=== PATIENT | female | born 1980 | race Caucasian/White ===

== ENCOUNTER → 2019-11-29 15:00 | Outpatient (CLI) | payer BC, MEDICAID, SELFPAY ==
--- NOTE | 2019-11-29 15:09 | CT_ITS ---
PROCEDURE: CT KNEE LT WO CON CLINICAL HISTORY: LT KNEE-FX LT TIBIA Injury with pain, follow-up fracture COMPARISON: No exams were available for comparison TECHNIQUE: Axial images obtained with sagittal and coronal reformats. All CT scans at the facility use one or more dose reduction, viz: automated exposure control, ma/kV adjustment per patient size (including targeted exams where dose is matched to indication, i.e. head), or iterative reconstruction technique. FINDINGS: There is a comminuted depressed intra-articular lateral tibial plateau fracture. Fracture fragments are depressed by approximately 7 mm. The fracture involves the mid and anterior aspect of the lateral tibial plateau. The posterior aspect of the lateral tibial plateau is not involved. Tibial spines are not involved. Distal femur and patella has an unremarkable appearance. There is a vertical component of the fracture along the anterior and lateral aspect of the proximal tibia which is not significantly displaced and involves the articular surface anteriorly. There is a medium-sized knee joint effusion. The cannot adequately evaluate the integrity the ligamentous structures IMPRESSION: Comminuted mildly depressed intra-articular lateral tibial plateau fracture as described above with knee joint effusion Dictated by: Florencio Bro MD 11/29/2019 17:15 Electronically signed by Florencio Bro MD in [place] 11/29/2019 17:15
== END ==
PROVIDERS: Visit Provider Orthopaedic Surgery Adult Reconstructive Orthopaedic Surgery
DX: S82.122A Displaced fracture of lateral condyle of left tibia, initial encounter for closed fracture (principal)
CPT/HCPCS: 73700

== ENCOUNTER 2023-08-11 18:03 | Emergency (ER) | payer MEDICAID, SELFPAY ==
[2023-08-11 18:05] VITALS: BP 135/96; PULSE 82; RESP 18; TEMP 36.6; O2SAT 98; BMI 30.4
[2023-08-11] MEDS: OXYMETAZOLINE NASAL SPRAY 0.05% 15ML 4 ML NS (18:43)
--- NOTE | 2023-08-11 18:45 | ED_ITS ---
Discharge Plan Disposition Patient Disposition: Home, Self-Care Chief Complaint: Epistaxis Prescriptions Prescriptions: No Action doxycycline hyclate 100 mg tablet 100 mg PO BID Qty: 20 0RF prednisone 20 mg tablet 20 mg PO BID Qty: 10 0RF Rx Instructions: administer with food or milk ecwzmcxtgdohwjq-uzjodrspt-JO [Bromfed DM] 2-30-10 mg/5 mL syrup 5 ml PO Q6H PRN (Reason: cold symptoms) Qty: 180 0RF phentermine [Adipex-P] 37.5 mg tablet 37.5 mg PO DAILY Qty: 30 0RF Rx Instructions: must administer 30 minutes before or 1-2 hours after breakfast Referrals Follow up/Referrals: Denisse Calhoun PA [Primary Care Provider] - See instructions Activity Restrictions/Add. Instructions Additional Instructions/Restrictions: If you have another episode, blood clots out of your nose, put Afrin in both sides 2-4 squirts, then blow your nose for 20 minutes. Repeat up to 2 times. If you do not have resolution of nosebleed, come to the emergency department for further evaluation. Clinical Impressions Clinical Impression: Acute anterior epistaxis Instructions Patient Instructions: DI for Nosebleed Discharge ED Provider: George Jaimes General Adult HPI General Chief complaint: Epistaxis Stated complaint: nosebleed Time Seen by Provider: 08/11/23 18:07 Mode of Arrival: Ambulatory Source of Information: Patient Limitations: No Limitations Description of Symptoms (Recalled from ER Triage Doc. by RN): Patient presents to ED with nose bleed, states it started 15 minutes ago. History of Present Illness HPI narrative: 43-year-old female presenting with epistaxis. Last time she had epistaxis was about a month ago, first time ever. She is now having another episode. Both times were in the left nostril. Digital trauma was the cause. Not on anticoagulation. Related Data Previous Rx's Medication Instructions Recorded pkfihnrvlyppjhf-rhxeepfiulbledg-DT 5 ml PO Q6H PRN cold symptoms #180 04/23/23 2 mg-30 mg-10 mg/5 mL oral syrup mL (Bromfed DM) doxycycline hyclate 100 mg tablet 100 mg PO BID #20 tabs 04/23/23 phentermine 37.5 mg tablet 37.5 mg PO DAILY #30 tabs 04/23/23 (Adipex-P) prednisone 20 mg tablet 20 mg PO BID #10 tabs 04/23/23 Allergies Allergy/AdvReac Type Severity Reaction Status Date / Time No Known Allergies Allergy Verified 04/23/23 09:32 [facility] Disclaimer: The information contained in this section may have been updated after the patient was seen, as this information can be updated by other users. Social History Smoking Status: Never smoker alcohol intake: never substance use type: denies use current occupational status: employed Travel in the last 8 weeks: None household members: family housing: house ROS Obtained: Yes All systems reviewed & no additional complaints except as documented Physical Exam General General appearance: alert and in no apparent distress Head Head exam: atraumatic and normocephalic Eye Eye exam: Present normal appearance, PERRL and EOMI ENT ENT exam: Present mucous membranes moist and other (Nasal polyp and Kiesselbach's plexus on the left side of the septum) Neck Neck exam: Present normal inspection, full ROM and trachea midline Respiratory Respiratory exam: Absent respiratory distress, wheezes, stridor, accessory muscle use or prolonged expiratory phase Cardiovascular Cardiovascular exam: Present normal rhythm Abdominal Exam Abdominal exam: Present soft; Absent distention, tenderness, guarding, rebound or rigidity Extremities Exam Extremities exam: Absent edema Neurological Exam Neurological exam: Present alert, oriented X3, CN II-XII intact and normal gait; Absent motor sensory deficit Skin Skin exam: Present warm and dry; Absent diaphoresis or erythema Medical Decision Making Medical Records Medical records reviewed: Yes I reviewed the patient's medical records. Uday Inquiry Pt receiving controlled substance: No Uday was queried for this patient: No Vital Signs: 08/11/23 18:05 08/11/23 19:18 08/11/23 19:25 Temperature 97.8 F 98.5 F Temperature Source Oral Oral Pulse Rate 88 90 Pulse Rate [Right Radial] 82 Respiratory Rate 18 18 Blood Pressure 104/62 L 104/62 L Blood Pressure [Right Arm] 135/96 H Blood Pressure Mean 66 Blood Pressure Mean [Right Arm] 109 Blood Pressure Source Automatic Cuff Blood Pressure Source [Right Arm] Automatic Cuff Blood Pressure Position Sitting Blood Pressure Position [Right Arm] Sitting 02 Sat by Pulse Oximetry 98 96 Oxygen Delivery Method Room Air Room Air Orders (Tests/Meds): ED MEDICATIONS Discontinued Medications Generic Name Dose Route Start Last Admin Trade Name Katie PRN Reason Stop Dose Admin Oxymetazoline HCl 4 ml 08/11/23 18:28 08/11/23 18:43 Oxymetazoline Nasal [place] 0.05% 15ml NS 08/11/23 18:29 4 ml ONCE ONE Administration Medical Decision Narrative: 43-year-old female presenting with epistaxis. Last time she had epistaxis was about a month ago, first time ever. She is now having another episode. Both times were in the left nostril. Digital trauma was the cause. Not on anticoagulation. History was obtained via conversation with patient and . On arrival, patient hemodynamically stable, alert, oriented x4, appropriate, GCS 15, moving all extremities spontaneously, pupils equal and reactive to light. Full physical exam performed and significant for epistaxis on my evaluation. Patient has bleeding associated with nasal polyp and keeps a box plexus on the left side of the septum. Mildly tachycardic, normotensive. Differential includes digital trauma, bleeding dyscrasia, among others. Patient was given topical oxymetazoline for symptomatic management and correction of underlying abnormalities. On reevaluation, patient hemostatic.Given patient presentation, workup, history, this most likely represents epistaxis secondary to digital trauma. Because patient does have nasal polyp, is recommended that she continues to have the symptoms to follow-up with ENT, she voiced understanding. Because patient at baseline without signs or symptoms of clinical decompensation, deemed appropriate for discharge. Results were relayed to patient who voiced understanding and were agreeable to outpatient management and follow up. At the time of discharge the patient was hemodynamically stable, tolerating PO, and mobilizing appropriately. Critical Care Critical Care Time Critical Care Time: No
[2023-08-11 19:18] VITALS: BP 104/62; PULSE 88; O2SAT 96
[2023-08-11 19:25] VITALS: BP 104/62; PULSE 90; RESP 18; TEMP 36.9; O2SAT 96
== END 2023-08-11 19:53 | disposition home or self-care (01) ==
PROVIDERS: Emergency Provider Emergency Medicine; PCP Physician Assistant
DX: R04.0 Epistaxis (principal); J33.9 Nasal polyp, unspecified; R00.0 Tachycardia, unspecified
CPT/HCPCS: 99283

== ENCOUNTER 2023-09-09 18:01 | Outpatient (CLI) | payer MEDICAID, SELFPAY ==
[2023-09-09 18:25] LABS: Basophils % 0.4 % (0.1-2.0); Eosinophils # 0.2 K/mm3 (0.0-0.4); Eosinophils % 2.3 % (0.1-12.0); Hematocrit 43.9 % (37.0-47.0); Hemoglobin 14.5 g/dL (12.2-16.2); Lymphocytes # 2.1 K/mm3 (0.7-4.5); Lymphocytes % 31.9 % (10-50); Mean Corpuscular HGB Conc 33.1 g/dL (31.8-35.4); Mean Corpuscular Hemoglobin 31.3 pg (27.0-31.2); Mean Corpuscular Volume 94.5 fl (81-99); Mean Platelet Volume 8.9 fl (7.4-10.4); Monocytes # 0.5 K/mm3 (0.1-1.0); Monocytes % 7.8 % (1.7-9.3); Neutrophils # 3.9 K/mm3 (1.8-7.8); Neutrophils % 57.5 % (37.0-80.0); Platelet Count 375 K/mm3 (142-424); Red Blood Count 4.64 M/mm3 (4.20-5.40); Red Cell Distribution Width 12.5 % (11.5-17.5); White Blood Count 6.7 K/mm3 (4.8-10.8)
[2023-09-09 19:04] LABS: Chloride 105 mmol/L (98-107); Potassium 4.1 mmoL/L (3.5-5.1); Sodium 136 mmol/L (136-145)
[2023-09-09 19:06] LABS: Blood Urea Nitrogen 9 mg/dl (7-17); Estimated Glomerular Filt Rate 78 ml/min (>60); GFR (African American) 94 ML/MIN (>60)
[2023-09-09 19:07] LABS: Alanine Aminotransferase 21 U/L (12-78); Albumin Level 4.5 g/dl (3.5-5.0); Albumin/Globulin Ratio 1.7 (1.1-1.8); Alkaline Phosphatase 90 U/L (38-126); Anion Gap 9.1 mEq/L (5-15); Aspartate Amino Transferase 29 U/L (14-36); Bilirubin,Total 0.7 mg/dl (0.2-1.3); Calcium 9.5 mg/dl (8.4-10.2); Carbon Dioxide 26 mmol/L (22.0-30.0); Chol/HDL Ratio 4.5 (1-3.5); Cholesterol 190 mg/dl (140-200); Globulin 2.6 g/dL (1.3-3.2); Glucose 101 mg/dl (74-100); HDL Cholesterol 42 mg/dl (40-60); Iron 95 ug/dL (37-170); Total Protein,Serum 7.1 g/dl (6.3-8.2); Triglycerides 110 mg/dl (30-150); VLDL Cholesterol 22 mg/dL (0-40)
[2023-09-09 19:30] LABS: 25-OH Vitamin D, Total 34.8 ng/mL (30-100)
[2023-09-09 19:46] LABS: Total Iron Binding Capacity 337 ug/dL (265-497)
== END 2023-09-09 23:59 ==
LOC: LAB.DROPOF 09-10 18:02
PROVIDERS: PCP Physician Assistant; Visit Provider Physician Assistant
DX: R04.0 Epistaxis (principal); E66.9 Obesity, unspecified; Z68.31 Body mass index [BMI] 31.0-31.9, adult
CPT/HCPCS: 80053; 80061; 82306; 83540; 83550; 84443; 85025

== ENCOUNTER 2025-01-25 15:39 | Outpatient (CLI) | payer BC, MEDICAID, SELFPAY ==
--- OUTSIDE RECORDS SUMMARY | 2025-01-25 15:41 | XMS_ITS | Clinical Summary ---
Author Organization [facility] Address [address] [place], [place] [id number] Phone [email or web address] Care Team Providers Care Secretary To Board Of Commissioners Name Role Phone Unavailable Primary Care Provider Unavailabl e Allergies No known active allergies Medications No known medications Active Problems No known active problems Social History Tobacco Use Types Packs/Day Years Used Date Smoking Tobacco: Former Cigarettes Smokeless Tobacco: Never Intimate Partner Violence Answer Date R ecorded Insults You Not on file 11/02/2020 Threatens You Not on file 11/02/2020 Screams at You Not on file 11/02/2020 Physically Hurt Not on file 11/02/2020 Intimate Partner Violence Score Not on file 11/02/2020 Stress Answer Date Recorded Stress in your Life Not on file 05/25/2024 Dealing with Stress 3 05/25/2024 Comments Unknown Sex and Gender Information Value Date Recorded Sex Assigned at Not on file Legal Sex Female 12:04 PM CDT Gender Identity Not on file Sexual Orientation Not on file Last Filed Vital Signs Vital Sign Reading Time Taken Comments Blood Pressure 116/80 04/04/2019 2:31 PM EDT Pulse 82 04/05/2021 10:20 AM EDT Temperature 36 C (96.8 F) 04/05/2021 10:20 AM EDT Respiratory Rate - - Oxygen Saturation 98% 04/05/2021 10:20 AM EDT Inhaled Oxygen Concentration - - Weight 98.4 kg (217 lb) 04/04/2019 2:31 PM EDT Height 167.6 cm (5' 6 ) 04/04/2019 2:31 PM EDT Body Mass Index 35.02 04/04/2019 2:31 PM EDT Plan of Treatment Health Maintenance Due Date Last Done Comments Dental Cleaning/Exam 1979 HIV Screening 1979 Hepatitis C Screening 1979 Cervical Cancer Screening 1995 Hep B Infection Screening - Triple Screen 1997 Hepatitis B Immunization (1 of 3 - 19+ 3-dose series) 1998 Tetanus Diphtheria and Pertu ssis Immunization (1 - Tdap) 1998 Breast Cancer Screening 2009 Colorectal Cancer Screening 2009 Annual Preventive Exam 04/04/2020 04/04/2019 Covid-19 Immunization (1 - 2 024-25 season) 2024 Influenza Immunization (#1) 2025 HIB Immunization Aged Out No longer e ligible based on patient's age to complete this topic HPV Immunization Aged Out No longer e ligible based on patient's age to complete this topic Hepatitis A Immunization Aged Out No longer eligible based on patient's age to complete this topic Pneumococcal: Ped (0 to 5 Yr s) and At-Risk Member (6 to 64 Yrs) Aged Out No longer e ligible based on patient's age to complete this topic Polio Immunization Aged Out No longer eligible based on patient's age to complete this topic Insurance OPT OUT NO COPAY NB
--- NOTE | 2025-01-25 16:00 | MM_ITS ---
PROCEDURE INFORMATION: Exam: MG Bilateral Screening 3D Mammography Exam date and time: 01/25/2025 3:52 PM Age: 44 years old Clinical indication: Screening examination. TECHNIQUE: Imaging protocol: Bilateral Screening tomosynthesis and 2D mammography including computer-aided detection (CAD) when performed. COMPARISON: 1. MG MAMMO DIAGNOSTIC DIGITAL TOMOSYNTHESIS RIGHT W CAD 12/13/2021 8:57 AM 2. MG MAMMO SCREENING DIGITAL TOMOSYNTHESIS BILATERAL W CAD 10/21/2021 12:54 PM FINDINGS: MAMMOGRAPHY: Breast composition: There are scattered areas of fibroglandular density. Mass: None. Architectural distortion: None. Calcifications: No suspicious calcifications. Asymmetric density: None. Skin thickening: None. Axillary adenopathy: None. IMPRESSION: No mammographic evidence of malignancy. Annual screening is recommended unless otherwise clinically indicated. ASSESSMENT: BI-RADS Category 1: Negative.
[2025-01-25 16:32] LABS: Hematocrit 41.8 % (37.0-47.0); Hemoglobin 13.9 g/dL (12.2-16.2); Immature Granulocytes % 0.3 %; Mean Corpuscular HGB Conc 33.3 g/dL (31.8-35.4); Mean Corpuscular Hemoglobin 28.9 pg (27.0-31.2); Mean Corpuscular Volume 86.9 fl (81-99); Nucleated Red Blood Cells % 0 %; Platelet Count 331 K/mm3 (142-424); Red Blood Count 4.81 M/mm3 (4.20-5.40); Red Cell Distribution Width-SD 39.6 fL; White Blood Count 9.5 K/mm3 (4.8-10.8)
[2025-01-25 17:08] LABS: Hemoglobin A1C 6.1 % (4.0-6.0)
[2025-01-25 17:11] LABS: Alanine Aminotransferase 13 U/L (12-78); Albumin Level 4.6 g/dl (3.5-5.0); Albumin/Globulin Ratio 1.4 (1.1-1.8); Alkaline Phosphatase 71 U/L (38-126); Anion Gap 15.0 mEq/L (5-15); Aspartate Amino Transferase 26 U/L (14-36); Bilirubin,Total 0.8 mg/dl (0.2-1.3); Blood Urea Nitrogen 13 mg/dl (7-17); Calcium 9.2 mg/dl (8.4-10.2); Carbon Dioxide 25 mmol/L (22.0-30.0); Chloride 101 mmol/L (98-107); Cholesterol 190 mg/dl (140-200); Creatinine,Serum 0.70 mg/dl (0.52-1.04); Estimated Glomerular Filt Rate 90 ml/min (>60); GFR (African American) 109 ML/MIN (>60); Globulin 3.2 g/dL (1.3-3.2); Glucose 82 mg/dl (74-100); HDL Cholesterol 49 mg/dl (40-60); Potassium 4.0 mmoL/L (3.5-5.1); Sodium 137 mmol/L (136-145); Total Protein,Serum 7.8 g/dl (6.3-8.2); Triglycerides 105 mg/dl (30-150)
[2025-01-25 17:26] LABS: 25-OH Vitamin D, Total 54.2 ng/mL (30-100)
[2025-01-25 17:39] LABS: Thyroid Stimulating Hormone 2.01 uIU/mL (0.465-4.68)
== END 2025-01-25 23:59 | disposition home or self-care (01) ==
LOC: RAD 15:39
PROVIDERS: PCP Family Medicine; Visit Provider Family Medicine
DX: Z12.31 Encounter for screening mammogram for malignant neoplasm of breast (principal); Z00.00 Encounter for general adult medical examination without abnormal findings; R92.323 Mammographic fibroglandular density, bilateral breasts
CPT/HCPCS: 36415; 77063; 77067; 80053; 80061; 82306; 83036; 84443; 85025

== ENCOUNTER 2025-03-12 13:01 | Outpatient (CLI) | payer BC, MEDICAID, SELFPAY ==
--- OUTSIDE RECORDS SUMMARY | 2025-03-13 12:52 | XMS_ITS | Clinical Summary ---
Author Organization [facility] Address [address] [place] [address] Care Team Providers Care Stock Drier Tender Name Role Phone Antonia Sanchez MD Primary Care Provider [phone] Allergies No known active allergies Family History Medical History Relation Name Comments Heart disease Maternal Grandmother Diabetes Mother Skin cancer Paternal Grandmother Breast cancer Neg Hx Ovarian cancer Neg Hx Relation Name Status Comments Maternal Grandmother Mother Paternal Grandmother Social History Tobacco Use Types Packs/Day Years Used Date Smoking Tobacco: Never Abuse Screen Answer Date Recorded Unsafe at Home or Work/School Not on file Feels Threatened by Someone? Not on file 03/2023 Does Anyone Keep You from Co ntacting Others or Doint Things Outside the Home? Not on file 04/27/2023 Physical Sign of Abuse Present Not on file 1 Housing Stability Answer Date Recorded Current Living Arrangements Not on file 03/2023 Potentially Unsafe Housing Conditions Not on caitlin e 04/27/2023 Family and Community Support Answer Carlos e Recorded Help with Day-to-Day Activities Not on file 04/27/2023 Lonely or Isolated Not on file 04/27/2023 Employment Answer Date Recorded Do you want help finding or keeping work or a madeline b? Not on file 04/27/2023 Disabilities Answer Date Recorded Concentrating, Remembering, or Making Decisions Difficulty Not on file 04/27/2023 Doing Errands Independently Difficulty Not on fi le 04/27/2023 Education Answer Date Recorded Help with school or training? Not on file Preferred Language Not on file 04/27/2023 Comments No Sex and Gender Information Value Date Recorded Sex Assigned at Not on file Legal Sex Female 1:12 PM EDT Gender Identity Not on file Sexual Orientation Not on file Plan of Treatment Health Maintenance Due Date Last Done Comments Annual Gynecologic Pelvic an d Breast Exam 1979 TDAP/TD VACCINES (1 - Tdap) 1998 ANNUAL PHYSICAL 04/28/2016 HEPATITIS C SCREENING 04/28/2016 MAMMOGRAM 12/14/2023 12/13/2021, 10/21/2021 COVID-19 Vaccine (1 - 2023-2 5 season) 2024 COLOGUARD 2024 COLON CANCER SCREENING 5 YEA R SIGMOIDOSCOPY 2024 COLONOSCOPY 2024 [address]AL CANCER SCREENING 2024 CT COLONOGRAPHY 2024 FECAL OCCULT BLOOD TEST 2024 FIT Testing (1 year) 2024 INFLUENZA VACCINE 04/19/2025 Pneumococcal Vaccine 0-49 Aged Out No longer eligible based on patient's age to complete this topic Procedures Procedure Name Priority Date/Time Associated Diagnosis Comments MAMMO DIAGNOSTIC DIGITAL TOMOSYNTHESIS RIGHT W CAD Routine 12/13/2021 9:11 AM EDT Abnormal mammogram from Last 3 Months or Most Recently Relevant to Health Maintenance Results * Mammo Diagnostic Digital Tomosynthesis Right With CAD (12/13/2021 9:11 AM EDT) Anatomical Region Laterality Modality Breast Right Mammography 12/13/2021 9:00 AM EDT Impressions 12/13/2021 9:02 AM EDT No residual mammographic abnormality was identified in the right lateral breast on additional imaging. RECOMMENDATION: Resume annual screening mammography. BI-RADS CATEGORY 1, NEGATIVE. CAD was utilized. The standard false-negative rate of mammography is between 10% and 25%. Complex patterns or increased breast density will markedly elevate the false-negative rate of mammography. At our facility, a triangular marker is positioned over a palpable area of concern indicated by the patient. A standing rock marker is placed over a visible skin lesion. A linear marker indicates a scar. A results letter, in lay terminology, will be given to the patient at the conclusion of the exam. This report was finalized on 12/13/2021 9:[address] Nicolle Greene MD. Narrative 12/13/2021 9:02 AM EDT RIGHT DIAGNOSTIC MAMMOGRAM WITH TOMOSYNTHESIS HISTORY: 41-year-old patient recalled from baseline screening mammography dated 10/21/2021 for further evaluation of the right breast. TECHNIQUE: Right CC focal compression imaging with tomosynthesis was performed. COMPARISON: Baseline screening mammogram dated 10/21/2021. FINDINGS: Focal compression imaging of the right lateral breast demonstrates effacement of the lateral asymmetry noted on baseline screening mammography. No underlying mass or area of architectural distortion were identified. Ivone Mercado MD IMG MAMMOGRAPHY ORDERABLES Fi nal Result from Last 3 Months or Most Recently Relevant to Health Maintenance Insurance [employer] Care Teams Stock Drier Tender Relationship Specialty Start Date End Date Antonia Sanchez MD [address] [address] PCP - General Family Medicine 09/05/21
--- OUTSIDE RECORDS SUMMARY | 2025-03-13 12:52 | XMS_ITS | Clinical Summary ---
Author Organization [facility] Address [address] [place] [id number] Phone [email or web address] Care Team Providers Care Industrial Tractor Driver Name Role Phone Unavailable Primary Care Provider [...] Health Maintenance Due Date Last Done Comments CT Colonography 1979 Cervical Cancer Screening Combo 1979 Colonoscopy 1979 Colorectal Cancer Screening Combo 1979 DNA Cologuard 1979 Dental Cleaning/Exam 1979 FIT or FOBT Test 1979 HIV Screening 1979 HPV / Cotest 1979 Hepatitis C Screening 1979 Pap Testing 1979 Sigmoidoscopy 1979 HPV Immunization (1 - 2-dose series) 1990 Hep B Infection Screening - Triple Screen 1997 Hepatitis B Immunization (1 of 3 - 19+ 3-dose series) 1998 Tetanus Diphtheria and Pertu ssis Immunization (1 - Tdap) 1998 Breast Cancer Screening 2009 Annual Preventive Exam 04/04/2020 04/04/2019 Covid-19 Immunization (1 - 2 season) 2024 Influenza Immunization (#1) 2025 HIB [...]
== END 2025-03-12 23:59 | disposition home or self-care (01) ==
LOC: LAB.DROPOF 03-13 12:42
PROVIDERS: PCP Student in an Organized Health Care Education/Training Program; Visit Provider Student in an Organized Health Care Education/Training Program
DX: N39.0 Urinary tract infection, site not specified (principal)
CPT/HCPCS: 87086; 87088